=== PATIENT | male | born 1940 | race Caucasian/White ===

== ENCOUNTER 2017-03-05 15:30 | Outpatient (CLI) | payer MEDICARE ==
--- NOTE | 2017-03-05 16:02 | DIAGNOSTIC IMAGING REPORT ---
PROCEDURE: XR FOOT 3 VIEWS - LEFT INDICATION: OSTEOARTHRITIS, HYPERTENSION, HYPERLIPIDEMIA TECHNIQUE: Three views. COMPARISON: None. FINDINGS: There is a calcaneal spur. No other osseous lesions. Joint spaces are normal. IMPRESSION: 1. Calcaneal spur.
== END 2017-03-05 23:00 ==
LOC: XR SRH 15:30
DX: M77.32 Calcaneal spur, left foot (principal); I10 Essential (primary) hypertension